=== PATIENT | female | born 1950 | race Caucasian/White ===

== ENCOUNTER → 2024-06-02 13:13 | Outpatient (REF) | payer MEDICARE, OTHER, SELFPAY | LOC: WDC 13:13 | PROVIDERS: ATTENDING PHYSICIAN Internal Medicine | DX: Z12.31 Encounter for screening mammogram for malignant neoplasm of breast (principal) | CPT/HCPCS: 77063; 77067 ==

== ENCOUNTER 2024-12-06 15:43 | Emergency (ER) | payer MEDICARE, OTHER, SELFPAY ==
[2024-12-06 15:52] VITALS: BP 152/88
--- NOTE | 2024-12-06 16:02 | ED.GENMED ---
History of Present Illness
General
Chief Complaint: Head Injury
Source: patient
Exam Limitations: none
Time Seen by Provider: 12/06/24 16:02
Nursing documentation reviewed up to this point in time: agreed with
History of Present Illness
History of Present Illness:
74-year-old female with history of hypothyroid presents she was playing pickle ball and backing up quickly, her feet got tangled she went down on her butt and then hit her back and the back of her head on the floor. There was no loss of
consciousness. Not anticoagulated she had a headache initially but that has completely resolved. Denies change in vision or neck pain. She denies any other injury.
Past History
Past History
ED Past Medical History: Hypothyroidism
ED Past Surgical History:
Social History
Tobacco: Non-smoker
Living: with family
Review of Systems
Review of Systems
Allergies reviewed?: Yes
All Other Systems: ROS reviewed and negative except as documented in HPI and ROS
ABD/GI: Denies nausea or vomiting
Musculoskeletal: Denies neck pain or back pain
Skin: Reports no symptoms
Neurological: Denies dizzy, headache, weakness or numbness
Phy Exam
Physical Exam
Physical Exam:
GENERAL: No acute distress. A&Ox3.
CONSTITUTIONAL: Afebrile.
EYES: clear, conjunctivae normal
ENMT: moist mucus membranes, Pharynx nl
RESPIRATORY: Regular respirations, nonlabored, lungs clear.
CARDIOVASCULAR: Regular rate and rhythm, no murmurs, no rubs.
GI: Soft, nontender, normal BS
MUSCULOSKELETAL: No spinal bony tenderness. Moves with ease. Well perfused.
SKIN: Warm, dry, pink
PSYCH: Normal mood and affect. Well kept, interactive and appropriate
NEUROLOGIC: Awake, alert and oriented. No focal neurological deficits
Course
Vital Signs
Initial and Last Documented VS:
Initial Vital Signs
Temp Pulse Resp BP Pulse Ox
98.4 F 86 16 152/88 99
12/06/24 15:52 12/06/24 15:52 12/06/24 15:52 12/06/24 15:52 12/06/24 15:52
Last Documented Vital Signs
Temp Pulse Resp BP Pulse Ox
98.4 F 86 16 152/88 99
12/06/24 15:52 12/06/24 15:52 12/06/24 15:52 12/06/24 15:52 12/06/24 15:52
MDM/Problems Addressed
MDM/Problems Addressed:
74-year-old female with history of hypothyroid presents she was playing pickle ball and backing up quickly, her feet got tangled she went down on her butt and then hit her back and the back of her head on the floor. There was no loss of
consciousness. Not anticoagulated she had a headache initially but that has completely resolved. Denies change in vision or neck pain. She denies any other injury.
Patient had no LOC, there are no focal neurological deficits, she is not anticoagulated, no indication for head CT.
No significant injury
Patient is stable for discharge.
*Critical Care Note
Total Time (30-74mins, 75-104mins- exclusive of procedures): Not Applicable
ED Attending Note
-
Portions of this chart may have been created with voice recognition software.� Occasional wrong word or��sound alike� substitutions may have occurred due to the inherent limitations of voice recognition software.
Discharge Plan
Departure
Patient Disposition: Home (Routine Discharge)
Date of Disposition: 12/06/24
Time of Disposition: 16:07
Patient with high blood pressure during this ER visit?: No
Condition: Good
Discharge Problem:
Fall from slip, trip, or stumble, Minor head injury without loss of consciousness
Instructions: Minor Head Injury (DC)
Activity Restrictions/Additional Instructions:
As we discussed, I see nothing worrisome in your exam. You have no sign of concussion.
Interventions
Interventions:
*Risk Screen - Suicide Last Done: 12/06/24 15:52
*General Assessment Last Done: 12/06/24 15:52
*Neglect/Abuse Screening Last Done: 12/06/24 15:52
Discharge Date and Time
Print Language: HAITIAN
== END 2024-12-06 16:15 | disposition home or self-care (01) ==
LOC: EMR 15:43
PROVIDERS: EMERGENCY PHYSICIAN Emergency Medicine; FAMILY PHYSICIAN Internal Medicine
DX: S09.90XA Unspecified injury of head, initial encounter (principal); W01.0XXA Fall on same level from slipping, tripping and stumbling without subsequent striking against object, initial encounter; E03.9 Hypothyroidism, unspecified
CPT/HCPCS: 99282

== ENCOUNTER → 2025-06-09 10:57 | Outpatient (REF) | payer MEDICARE, OTHER, SELFPAY | LOC: WDC 10:57 | PROVIDERS: ATTENDING PHYSICIAN Nurse Practitioner | DX: Z12.31 Encounter for screening mammogram for malignant neoplasm of breast (principal) | CPT/HCPCS: 77063; 77067 ==